=== PATIENT | female | born 1965 | race Caucasian/White ===

== ENCOUNTER 2018-07-07 06:08 | Day surgery (SDC) | payer OTHER ==
[2018-07-07] MEDS ORDERED: MIDAZOLAM 1 MG/ML 2 ML INJ ×5 (08:37→10:03)
[2018-07-07] MEDS ORDERED: FENTAnyl 50 MCG/ML VIAL ×2 (08:38→10:03)
== END 2018-07-07 13:16 | disposition home or self-care (01) ==
LOC: GIL 06:08
DX: Z12.11 Encounter for screening for malignant neoplasm of colon (principal); K64.8 Other hemorrhoids
CPT/HCPCS: 45378